=== PATIENT | male | born 2000 | race Caucasian/White ===

== ENCOUNTER 2021-05-18 12:12 | Inpatient (IN) | payer OTHER ==
[~2021-05-18] VITALS: Ht 185.4 cm; Wt 61.0 kg
[2021-05-18 12:42] VITALS: BP 161/102
[2021-05-18] MEDS ORDERED: TOPROL XL100 MG PO (12:47)
[2021-05-18 13:18] LABS: ABSOLUTE LYMPHOCYTES 1.4 thou/uL (0.8-5.3); ABSOLUTE MONOCYTES 0.5 thou/uL (0.0-1.2); ABSOLUTE NEUTROPHILS 6.8 thou/uL (1.6-8.1); BASOPHILS 0.4 %; EOSINOPHILS 0.3 %; HEMATOCRIT 37.2 % (42.0-52.0); HEMOGLOBIN 12.6 gm/dL (14.0-18.0); LYMPHOCYTES 16.2 %; MCH 30.3 pg (26.0-34.0); MCHC 33.9 g/dL (28.0-37.0); MCV 89.4 fL (80.0-100.0); MONOCYTES 6.2 %; MPV 11.2 fl. (7.2-11.1); NUCLEATED RBCS 0 /100WBC; PLATELET COUNT* 171 thou/uL (150-400); POLYS 76.9 %; RBC 4.16 mil/uL (4.50-6.00); RDW-CV 12.9 % (10.5-14.5); WBC 8.8 thou/uL (4.0-11.0)
[2021-05-18 13:25] LABS: CALCIUM 9.6 mg/dL (8.5-10.1); CREATININE 6.3 mg/dL (0.6-1.3); POTASSIUM 3.7 mmol/L (3.5-5.1)
[2021-05-18 13:30] LABS: ALBUMIN 4.2 g/dL (3.4-5.0); TOTAL BILIRUBIN 0.3 mg/dL (<0.1-1.0); TOTAL PROTEIN 7.9 g/dL (6.4-8.2)
[2021-05-18 13:36] LABS: INFLUENZA A ANTIGEN Negative (Negative); INFLUENZA B ANTIGEN Negative (Negative)
[2021-05-18 16:03] VITALS: BP 150/92
[2021-05-18 19:42] VITALS: BP 170/119
[2021-05-18 21:49] VITALS: BP 171/114
[2021-05-19] VITALS (8 sets, daily range): BP systolic 90–162; BP diastolic 48–109
[2021-05-19 04:42] LABS: HEMATOCRIT 36.8 % (42.0-52.0); HEMOGLOBIN 12.3 gm/dL (14.0-18.0); MCH 29.7 pg (26.0-34.0); MCHC 33.5 g/dL (28.0-37.0); MCV 88.7 fL (80.0-100.0); MPV 10.4 fl. (7.2-11.1); NUCLEATED RBCS 0 /100WBC; PLATELET COUNT* 184 thou/uL (150-400); RBC 4.15 mil/uL (4.50-6.00); RDW-CV 13.1 % (10.5-14.5); WBC 14.8 thou/uL (4.0-11.0)
[2021-05-19 05:14] LABS: ALBUMIN 3.7 g/dL (3.4-5.0); CALCIUM 9.1 mg/dL (8.5-10.1); TOTAL BILIRUBIN 0.3 mg/dL (<0.1-1.0); TOTAL PROTEIN 7.3 g/dL (6.4-8.2)
[2021-05-19 05:48] LABS: POTASSIUM 6.3 mmol/L (3.5-5.1)
[2021-05-19 06:21] LABS: ABSOLUTE MONOCYTES 0.7 thou/uL (0.0-1.2); PLATELET ESTIMATE ADEQUATE
--- NOTE | 2021-05-19 10:59 | EKG ---
[place] [address] ELECTROCARDIOGRAM REPORT Name: LAXMI COLEY Room: [address] ADM IN .R.#: [id number] Admission: 05/18/21 Attend Phys: Hoa Mack Discharge: Date of : 89 Date of Service: 05/18/21 1405 Report #: [id number] THIS REPORT FOR: //name// [facility] ED Test Date: 2021-05-18 Test Time: 14:05:22 Pat Name: LAXMI COLEY Department: Room: [facility] Gender: M [facility] [employer] Advocate: STUDENT : 2000 Requested By: J Luis Erickson Order Number: [id number] MD: Lyndon Baxter Measurements Intervals [place] Rate: 53 P: 46 IA: 123 QRS: 60 QRSD: 107 T: 24 QT: 468 QTc: 440 Interpretive Statements Sinus rhythm Atrial premature complex No previous ECG available for comparison Electronically Signed On 05-19-2021 10:59:37 [employer] by Lyndon Baxter [email or web address] <ELECTRONICALLY SIGNED> By: Lyndon Baxter MD, [facility] 05/19/21 1059 1405 1405 Lyndon Baxter MD, [facility] /EPI
[2021-05-19 15:33] LABS: CALCIUM 8.6 mg/dL (8.5-10.1); POTASSIUM 3.9 mmol/L (3.5-5.1)
[2021-05-19 15:34] LABS: CREATININE 3.4 mg/dL (0.6-1.3)
[2021-05-20 01:48] VITALS: BP 118/68
[2021-05-20 06:32] VITALS: BP 95/42
[2021-05-20 08:30] LABS: ABSOLUTE LYMPHOCYTES 0.9 thou/uL (0.8-5.3); ABSOLUTE MONOCYTES 1.1 thou/uL (0.0-1.2); ABSOLUTE NEUTROPHILS 9.9 thou/uL (1.6-8.1); BASOPHILS 0.2 %; HEMATOCRIT 26.6 % (42.0-52.0); LYMPHOCYTES 7.4 %; MCH 30.7 pg (26.0-34.0); MCHC 34.1 g/dL (28.0-37.0); MCV 90.1 fL (80.0-100.0); MPV 10.6 fl. (7.2-11.1); NUCLEATED RBCS 0 /100WBC; PLATELET COUNT* 114 thou/uL (150-400); POLYS 83.4 %; RBC 2.96 mil/uL (4.50-6.00); RDW-CV 13.4 % (10.5-14.5); WBC 11.8 thou/uL (4.0-11.0)
[2021-05-20 08:42] LABS: HEMOGLOBIN 9.1 gm/dL (14.0-18.0)
[2021-05-20 08:46] VITALS: BP 152/86
[2021-05-20 08:50] LABS: ALBUMIN 2.7 g/dL (3.4-5.0); CALCIUM 8.4 mg/dL (8.5-10.1); MAGNESIUM 1.9 mg/dL (1.8-2.4); POTASSIUM 4.8 mmol/L (3.5-5.1); TOTAL BILIRUBIN 0.3 mg/dL (<0.1-1.0); TOTAL PROTEIN 5.9 g/dL (6.4-8.2)
[2021-05-20 08:54] LABS: CREATININE 5.8 mg/dL (0.6-1.3)
[2021-05-20 15:45] VITALS: BP 154/88
[2021-05-20 20:00] VITALS: BP 152/85
[2021-05-21] VITALS (8 sets, daily range): BP systolic 134–168; BP diastolic 71–99
[2021-05-21 08:17] LABS: HEMATOCRIT 23.9 % (42.0-52.0); MCH 30.1 pg (26.0-34.0); MCHC 33.4 g/dL (28.0-37.0); MCV 90.2 fL (80.0-100.0); MPV 10.3 fl. (7.2-11.1); RBC 2.65 mil/uL (4.50-6.00); RDW-CV 12.5 % (10.5-14.5); WBC 7.2 thou/uL (4.0-11.0)
[2021-05-21 08:21] LABS: CALCIUM 8.2 mg/dL (8.5-10.1); CREATININE 3.8 mg/dL (0.6-1.3); POTASSIUM 4.3 mmol/L (3.5-5.1)
[2021-05-22 04:00] VITALS: BP 158/93
[2021-05-22 07:30] VITALS: BP 137/86
[2021-05-22 08:43] LABS: HEMATOCRIT 23.8 % (42.0-52.0); MCH 30.4 pg (26.0-34.0); MCHC 33.7 g/dL (28.0-37.0); MCV 90.3 fL (80.0-100.0); RBC 2.64 mil/uL (4.50-6.00); RDW-CV 12.6 % (10.5-14.5); WBC 6.3 thou/uL (4.0-11.0)
[2021-05-22 12:00] VITALS: BP 139/84
[2021-05-22 13:59] LABS: POTASSIUM 4.5 mmol/L (3.5-5.1)
[2021-05-22 14:00] LABS: CREATININE 5.2 mg/dL (0.6-1.3)
[2021-05-22 16:00] VITALS: BP 139/83
[2021-05-22 20:00] VITALS: BP 167/86
[2021-05-22 23:57] VITALS: BP 148/92
[2021-05-23 04:00] VITALS: BP 145/89; BP 145/890
[2021-05-23 05:37] LABS: HEMATOCRIT 22.5 % (42.0-52.0); HEMOGLOBIN 7.7 gm/dL (14.0-18.0); MCH 30.8 pg (26.0-34.0); MCHC 34.1 g/dL (28.0-37.0); MCV 90.3 fL (80.0-100.0); MPV 9.9 fl. (7.2-11.1); RBC 2.5 mil/uL (4.50-6.00); RDW-CV 12.5 % (10.5-14.5)
[2021-05-23 05:53] LABS: CALCIUM 8.6 mg/dL (8.5-10.1); CREATININE 5.7 mg/dL (0.6-1.3); POTASSIUM 3.8 mmol/L (3.5-5.1)
[2021-05-23 12:00] VITALS: BP 145/95
[2021-05-23 17:00] VITALS: BP 141/94
[2021-05-23 20:00] VITALS: BP 136/78
[2021-05-24 02:19] VITALS: BP 147/93
[2021-05-24 05:52] LABS: ABSOLUTE EOSINOPHILS 0.2 thou/uL (0.0-0.7); ABSOLUTE MONOCYTES 0.5 thou/uL (0.0-1.2); ABSOLUTE NEUTROPHILS 2.9 thou/uL (1.6-8.1); BASOPHILS 0.5 %; EOSINOPHILS 4.1 %; HEMATOCRIT 23.8 % (42.0-52.0); HEMOGLOBIN 8.2 gm/dL (14.0-18.0); LYMPHOCYTES 22.2 %; MCH 30.2 pg (26.0-34.0); MCHC 34.3 g/dL (28.0-37.0); MONOCYTES 10.1 %; MPV 8.9 fl. (7.2-11.1); NUCLEATED RBCS 0 /100WBC; PLATELET COUNT* 153 thou/uL (150-400); POLYS 63.1 %; RDW-CV 12.5 % (10.5-14.5); WBC 4.5 thou/uL (4.0-11.0)
[2021-05-24 05:56] LABS: CALCIUM 8.8 mg/dL (8.5-10.1); POTASSIUM 4.2 mmol/L (3.5-5.1)
[2021-05-24 05:58] LABS: CREATININE 3.8 mg/dL (0.6-1.3)
[2021-05-24 06:57] VITALS: BP 142/92
[2021-05-24 09:32] VITALS: BP 140/89
--- NOTE | 2021-05-24 11:08 | PATH ---
[address] [address] PATHOLOGY RPT PROCEDURE Name: MIKE VOGT Room: [address] IN .R.#: [id number] Admission: 05/18/21 Date of : [birth year] Discharge: Report #: [id number] Path Case #: [id number] [facility] Accession Number: [id number] . 01 Material submitted: . small bowel - SMALL BOWEL . 01 Clinical history: . EXPLORATORY LAPAROTOMY SMALL BOWEL OBSTRUCTION SMALL BOWEL OBSTRUCTION WITH NECROTIC SMALL BOWEL AND INTRA ABDOMINAL ADHESIONS . 02 Diagnosis: Small bowel: - Segment of benign small intestine with segmental hemorrhagic necrosis, surgical margins viable. (CIARAN:tanesha; 05/23/2021) MBR 05/23/2021 1541 Local . 02 Electronically signed: . Alfonso Menendez MD, Pathologist NPI- [id number] . 01 Gross description: . The specimen is received in formalin, labeled "Mike Vogt small bowel". Received is an unoriented, serpiginous segment of small bowel measuring 56.2 cm in length and ranging in diameter from 1.5-2.8 cm. Both margins are stapled closed. The serosal surface is dusky pink-hendrix to brown-like in appearance, with the normal-appearing pink-hendrix mucosa located near each margin. The attached mesenteric fat measures up to 2.8 cm in thickness. The specimen is opened along the antimesenteric line to reveal pink-adame mucosa with normal architectural folds near each margin, with the remainder of the mucosa displaying a red-brown and predominately flattened appearance. Approximately 90% of the specimen appears grossly ischemic. The lumen of the specimen is filled with blood coagulum. Sectioning through the attached mesenteric fat reveals no readily identifiable lymph nodes. The specimen is submitted representatively as follows: . A1-A2 both margins A3-A6 pharmacy sales representative cross-sections. (CAA; 05/20/2021) QA/[facility] 05/23/2021 1540 Local . 02 Pathologist provided ICD-10: K55.069 . 02 [place] [address] PATHOLOGY RPT PROCEDURE Name: VIANCAMIKE Room: [address] IN .R.#: [id number] Admission: 05/18/21 Date of : 89 Discharge: Report #: [id number] Path Case #: [id number] [facility] . [id number] Specimen Comment: A courtesy copy of this report has been sent to [phone], [phone] Specimen Comment: [phone], Specimen Comment: Report sent to ,DR LOPEZ AND DR BURCH Specimen Comment: A duplicate report has been generated due to demographic updates. Performed at: [address], [place], [place] [id number] MD Chilo Dueñas MD Phone: [phone] Performed at: [facility] [address], [place], [place] [id number] MD Alfonso Menendez MD Phone: [phone]
[2021-05-24 12:25] VITALS: BP 146/96
[2021-05-24 17:37] VITALS: BP 142/87
[2021-05-24 21:09] VITALS: BP 140/85
[2021-05-25 01:00] VITALS: BP 145/80
[2021-05-25 04:35] LABS: ABSOLUTE EOSINOPHILS 0.2 thou/uL (0.0-0.7); ABSOLUTE LYMPHOCYTES 1.2 thou/uL (0.8-5.3); ABSOLUTE MONOCYTES 0.5 thou/uL (0.0-1.2); ABSOLUTE NEUTROPHILS 2.8 thou/uL (1.6-8.1); BASOPHILS 0.5 %; EOSINOPHILS 4.6 %; HEMATOCRIT 25.2 % (42.0-52.0); HEMOGLOBIN 8.5 gm/dL (14.0-18.0); LYMPHOCYTES 25.2 %; MCHC 33.7 g/dL (28.0-37.0); MCV 89.1 fL (80.0-100.0); MONOCYTES 9.9 %; MPV 9.3 fl. (7.2-11.1); NUCLEATED RBCS 0 /100WBC; PLATELET COUNT* 181 thou/uL (150-400); POLYS 59.8 %; RBC 2.82 mil/uL (4.50-6.00); RDW-CV 12.4 % (10.5-14.5); WBC 4.7 thou/uL (4.0-11.0)
[2021-05-25 04:44] LABS: POTASSIUM 3.8 mmol/L (3.5-5.1)
[2021-05-25 05:23] VITALS: BP 147/97
[2021-05-25 08:15] VITALS: BP 141/66
[2021-05-25] MEDS ORDERED: REGLAN 10 MG TA10 MG PO (09:39)
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
[2021-05-25 12:17] VITALS: BP 147/88
[2021-05-25 16:51] VITALS: BP 127/72
[2021-05-25 20:00] VITALS: BP 134/76
[2021-05-26 00:30] VITALS: BP 141/80
[2021-05-26 04:00] VITALS: BP 128/73
[2021-05-26 08:00] VITALS: BP 126/70
[2021-05-26 12:45] VITALS: BP 119/75
[2021-05-26 15:26] VITALS: BP 119/75
--- NOTE | 2021-05-27 14:58 | OP ---
[address] [address] OPERATIVE REPORT Name: LAXMI COLEY Room: [address] IN M.R.#: [id number] Admission: 05/18/21 Attend Phys: Alexandru Mckeon Discharge: 05/26/21 Date of : 89 Report #: [id number] THIS REPORT FOR: cc: Kelly Choi MD, Lin W. MD Harper, Charles B. III DO ~ cc: Kelly Choi MD DATE OF SURGERY: 05/19/2021 PREOPERATIVE DIAGNOSIS: Small bowel obstruction. POSTOPERATIVE DIAGNOSES: Necrotic small bowel and intra-abdominal adhesions. PROCEDURE PERFORMED: Exploratory laparotomy, lysis of adhesions for 30 minutes, small bowel resection with anastomosis and ABThera wound VAC placement. FINDINGS: Approximately 30 cm of necrotic small bowel and intra-abdominal adhesions. PRIMARY SURGEON: Raffaele Stuart DO DRAPERY COUNSELOR: Troy Guajardo, PGY-2 SECOND COLLAR SHAPER OPERATOR: Liz Sanchez, MS-3. ESTIMATED BLOOD LOSS: 30. SPECIMEN: Small bowel. COMPLICATIONS: None. ANESTHESIA: General and TAP block. INDICATIONS: The patient is a 21-year-old male who presented to the Emergency Department with acute onset of abdominal pain, nausea, vomiting. He was found on CT scan to have a small bowel obstruction and possibility of volvulus versus internal hernia. He was given an NG tube and treated with conservative management; however, he failed to improve, had ongoing abdominal pain. Due to his renal status, he was dialyzed the day following his admission and promptly taken to the operating room after completion of dialysis and confirmation of appropriate laboratory values. He was informed of the risks and benefits as well as his father of exploratory laparotomy and small bowel resection, possible open abdomen. They both understood this and decided to proceed with surgery. DESCRIPTION OF PROCEDURE: After informed consent was obtained, [place] [address] OPERATIVE REPORT Name: LAXMI COLEY Room: [address]#: [id number] Admission: 05/18/21 Attend Phys: Alexandru Mckeon Discharge: 05/26/21 Date of : 99 Report #: [id number] brought to the operating room and placed in a supine position. SCDs were on and running. Preoperative Ancef was given. General anesthesia was administered with an ET tube. The patient had the NG tube. There was still to suction. The patient was prepped and draped in the usual sterile fashion. A Ramos was placed under sterile conditions. Time-out was performed with confirmation of proper patient and procedure. We then began by creating a 10 cm incision through his previous laparotomy scar using a 10 blade. Dissection was carried through the subcutaneous tissue using cautery. Fascia was scored using cautery. The peritoneum was elevated with 2 Kellys and incised using Metzenbaum scissors. A finger was introduced into the abdomen. There were no adhesions to the midline fascia, so this was taken down and opened completely to the full length of the incision using cautery. Upon opening the peritoneum and fascia, we immediately visualized a dark black and bloody loop of small bowel that was clearly necrotic. There were several intra-abdominal adhesions throughout the abdomen, adhesions included a small bowel to small bowel, small bowel to colon and small bowel to peritoneum and pelvis adhesions. We began lysing these carefully using Metzenbaum scissors and blunt dissection. We took care not to rupture the necrotic bowel. There was no obvious spillage of small bowel contents. However, a length of approximately 30 cm of the small bowel was completely necrotic. This was well demarcated. There was a very thin fibrous band extending over the small bowel and extending into the pelvis. There was approximately 10 cm long. Once this was lysed, the necrotic small bowel was much more mobile and was exteriorized. We ran the entire length of the small bowel from ligament of Treitz to the terminal ileum lysing a few adhesions along the way to facilitate complete inspection of all the small bowel. The proximal small bowel was nicely decompressed. There was adequate mobilization of the necrotic segment such that we could perform a resection and jqip-qn-uoxm anastomosis. We began by making a window in the mesentery at the proximal and distal extent of the necrotic small intestine. We made this window by placing a Jennifer through the mesentery. We then divided the small bowel using a 75 blue load JLUIS stapler. We did this at the proximal and distal extent. A LigaSure Impact device was then used to take down the small bowel mesentery. Once the specimen was completely detached, it was handed off. We then performed a stapled jlbm-iz-ebiu antiperistaltic anastomosis. We took the staple lines and excised a corner using heavy curved Mayos. An additional load with the 75 mm blue load JLUIS stapler was used to place one-sided stapler into each limb of the small bowel. We then created the common channel. This was inspected and hemostatic. The common enterotomy was elevated with 4 Allis clamps and a TA 60 was used to close the common enterotomy. We then oversewed the staple line with Lembert sutures using 2-0 silk. The mesenteric defect was then closed in a running fashion using a 2-0 Vicryl. We inspected the staple line and there was a small bleeder at the TA 60 line. This was controlled with a single tygrej-nk-lsspt using 2-0 silk. I placed a crotch stitch at the crotch of the staple line using a 2-0 silk. This was inspected. It was hemostatic. The anastomosis was palpated and was patent. We [place] [address] OPERATIVE REPORT Name: LAXMI COLEY Room: [address] IN [facility].#: [id number] Admission: 05/18/21 Attend Phys: Alexandru Mckeon Discharge: 05/26/21 Date of : 99 Report #: [id number] abdomen. We explored the abdomen once more and was hemostatic. There was no more pathologic adhesions. The abdomen was thoroughly irrigated with 2 liters of normal saline that was warmed. We then closed the abdomen in a small bite fashion using running 2-0 PDS from the top and from the bottom with several centimeters overlap of the suture lines. The skin was closed using ben and a 13 cm Prevena wound VAC was applied to the closed incision. The patient tolerated the procedure well without complications. All counts were correct. He was extubated and transferred back to the floor for further care. <ELECTRONICALLY SIGNED> By: Raffaele Stuart III, DO 05/27/21 1458 1459 [id number] Stuart III, DO /nt
== END 2021-05-26 16:00 | disposition home or self-care (01) | DRG 329 ==
LOC: M.ERS 12:12 → M.TBA-ER 14:46 → M.2W 14:46
PROVIDERS: Anesthesiology; Internal Medicine; Physician Assistant; Student in an Organized Health Care Education/Training Program; Surgery; ADMIT Internal Medicine; ATTEND Internal Medicine
PROC: 0D9670Z Drainage of Stomach with Drainage Device, Via Natural or Artificial Opening (ICD-10-PCS; principal; 2021-05-18)
PROC: 0DNW0ZZ Release Peritoneum, Open Approach (ICD-10-PCS; 2021-05-19)
PROC: 0DB80ZZ Excision of Small Intestine, Open Approach (ICD-10-PCS; 2021-05-19)
PROC: 5A1D70Z Performance of Urinary Filtration, Intermittent, Less than 6 Hours Per Day (ICD-10-PCS; 2021-05-19)
PROC: 5A1D70Z Performance of Urinary Filtration, Intermittent, Less than 6 Hours Per Day (ICD-10-PCS; 2021-05-20)
PROC: 5A1D70Z Performance of Urinary Filtration, Intermittent, Less than 6 Hours Per Day (ICD-10-PCS; 2021-05-23)
PROC: 5A1D70Z Performance of Urinary Filtration, Intermittent, Less than 6 Hours Per Day (ICD-10-PCS; 2021-05-25)
DX: K56.50 Intestinal adhesions [bands], unspecified as to partial versus complete obstruction (principal); N18.6 End stage renal disease; E87.2 Acidosis; R65.10 Systemic inflammatory response syndrome (SIRS) of non-infectious origin without acute organ dysfunction; N17.9 Acute kidney failure, unspecified; Z20.822 Contact with and (suspected) exposure to COVID-19; E87.5 Hyperkalemia; Z88.8 Allergy status to other drugs, medicaments and biological substances; Z82.49 Family history of ischemic heart disease and other diseases of the circulatory system; Z28.21 Immunization not carried out because of patient refusal